=== PATIENT | male | born 1985 | race Caucasian/White ===

== ENCOUNTER 2019-05-17 22:56 | Emergency (ER) | payer SELFPAY ==
[~2019-05-17] VITALS: Ht 185.4 cm; Wt 74.0 kg
[2019-05-18] MEDS ORDERED: DIPHENHYDRAMINE 50MG/ML VIAL IM STA (00:13)
[2019-05-18] MEDS ORDERED: LORAZEPAM 2MG/ML CPJ IM STA ×3 (00:13→01:30)
[2019-05-18] MEDS ORDERED: OLANZAPINE 10 MG/VIAL IM ONE (00:15)
[2019-05-18] MEDS ORDERED: HALOPERIDOL LACTATE 5MG/ML VIAL IM ONE (03:00)
[2019-05-18 09:15] VITALS: BP 140/82
== END 2019-05-18 09:20 | disposition home or self-care (01) ==
LOC: ER 22:56
DX: S61.211A Laceration without foreign body of left index finger without damage to nail, initial encounter (principal); F19.10 Other psychoactive substance abuse, uncomplicated; R45.1 Restlessness and agitation; W45.8XXA Other foreign body or object entering through skin, initial encounter; Y93.89 Activity, other specified; Y92.89 Other specified places as the place of occurrence of the external cause; Y99.8 Other external cause status
CPT/HCPCS: 96372; 99284; J1200; J1630; J2060; J3490; Z7610